=== PATIENT | female | born 1950 | race Caucasian/White ===

== ENCOUNTER 2017-09-13 00:16 | Inpatient (IN) ==
--- NOTE | 2017-09-13 00:29 | Emergency Department Note ---
Addendum entered and electronically signed by Marc Paniagua DO 09/13/17 02:40: Addendum: 02:40 patient was driving abdominal discomfort. CT abdomen and pelvis was obtained and shows a small bowel junction. We will admit the patient for further care. Update Clinical impression to : Epigastric pain, nausea, vomiting, small bowel junction. Disposition: Admitted. Abdomen/Pelvis CT 09/13/17 01:40 IMPRESSION: Small bowel obstruction with no focal transition point identified. D/ / Tenzin Cortés MD / Tenzin Cortés MD Interpreting Provider: Tenzin Cortés MD Original Note: Disposition Clinical Impression: Epigastric pain Nausea and vomiting Qualifiers: Vomiting type: unspecified Vomiting Intractability: non-intractable Qualified Code(s): R11.2 - Nausea with vomiting, unspecified Disposition: Home, Self-Care Condition: Good Time of Disposition: 01:33 Abdominal Pain HPI - General Chief Complaint: ED Abdominal Pain Stated Complaint: abd pain Time Seen by Provider: 09/13/17 00:24 Source: patient Mode of arrival: ambulatory Limitations: no limitations Nursing Notes Reviewed: Yes Vital Signs Reviewed: Yes - History of Present Illness HPI Narrative: Patient is a 67-year-old female with past medical history of colon cancer, diabetes. She presents today due to epigastric pain, vomiting, nausea. She states that this started early yesterday morning. She has had 3 episodes of nonbloody, nonbilious vomiting. Denies any other chest pain shortness of breath , diarrhea, blood in emesis or stool. She feels dehydrated. She has had a cholecystectomy in the past. Denies any history of pancreatitis. Denies any dysuria, hematuria. Pain Scale: 10 - Related Data Home Medications Medication Instructions Recorded Confirmed Allopurinol [Zyloprim] 300 mg PO DAILY 03/14/15 09/03/17 Aspirin 81 mg PO DAILY 03/14/15 09/03/17 Atorvastatin [Lipitor] 40 mg PO DAILY 03/14/15 09/03/17 Lisinopril [Zestril] 20 mg PO DAILY 03/14/15 09/03/17 Metformin [Glucophage] 500 mg PO 0800 03/14/15 09/03/17 Metoprolol XL (24 HR) Succ [Toprol 25 mg PO DAILY 03/14/15 09/03/17 XL] Hydrocodone/Acetaminophen [[place] 1 tab PO TID PRN 10/21/15 09/03/17 5-325 Tablet] Cholecalciferol (Vitamin D3) 2,000 unit PO DAILY 09/03/17 09/03/17 [Vitamin D] Gabapentin [Neurontin] 600 mg PO HS 09/03/17 09/03/17 Omeprazole [PriLOSEC] 20 mg PO DAILY 09/03/17 09/03/17 amLODIPine [Norvasc] 5 mg PO DAILY 09/03/17 09/03/17 Previous Rx's Medication Instructions Recorded Dicyclomine [Bentyl] 20 mg PO QID PRN #40 capsule 09/13/17 Ondansetron ODT [Zofran ODT] 4 mg SL Q6HR PRN #12 tab.rapdis 09/13/17 Allergies Allergy/AdvReac Type Severity Reaction Status Date / Time citalopram [From Celexa] Allergy Rash Verified 09/13/17 00:29 morphine AdvReac Hypotension Verified 09/13/17 00:29 tramadol AdvReac Irritable Verified 09/13/17 00:29 All systems ED: reviewed and negative except as stated. Constitutional: Denies: fever Cardiovascular: Denies: chest pain Respiratory: Denies: cough, dyspnea Gastrointestinal: Reports: abdominal pain, nausea, vomiting. Denies: diarrhea, constipation Genitourinary: Denies: urgency, dysuria Integumentary: Denies: rash Neurological: Denies: headache, weakness, numbness, paresthesias Abdominal Pain PMH - Past Medical History Medical history: Reports: cancer, coronary artery disease, DVT, diabetes, hypertension, other Female Surgical History: Reports: cholecystectomy Psychiatric history: Reports: no psych history - Social History Smoking status: Never smoker Alcohol use: Reports: none Drug use: Reports: none Physical Exam - General Limitations: no limitations General appearance: alert, in no apparent distress - Head Head exam: atraumatic, normocephalic, normal inspection - Eye Eye exam: Present: normal appearance, PERRL, EOMI - ENT ENT exam: normal exam, normal oropharynx, mucous membranes moist - Neck Neck exam: Present: normal inspection, full ROM, trachea midline - Chest Chest inspection: Present: normal inspection, symmetric chest wall rise - Respiratory Respiratory exam: Present: normal lung sounds bilaterally - Cardiovascular Cardiovascular exam: Present: regular rate, normal rhythm, normal heart sounds - Abdominal Exam Abdominal exam: Present: soft, tenderness (Mild epigastric tenderness). Absent : distention, guarding, rebound, rigidity, Hernandez's sign, Rovsing's sign, tenderness at McBurney's Point - Extremities Exam Extremities exam: Present: normal inspection, full ROM. Absent: tenderness, pedal edema - Neurological Exam Neurological exam: Present: alert, oriented X3 - Psychiatric Psychiatric exam: Present: normal affect, normal mood - Skin Skin exam: Present: warm, dry, intact, normal color Course Course Narrative: Patient mildly hypertensive. Otherwise, the rest of the vitals within normal limits. Physical exam positive only for mild epigastric tenderness. Patient received Zofran while in route via EMS and states that this has almost completely resolved her nausea. She also requested some pain medication for epigastric pain. Declined any narcotic medication. I discussed trying Bentyl for her abdominal discomfort she is agreeable with this plan. Basic labs were ordered, no major abnormality and CBC, BMP, LFTs or lipase. Urinalysis negative for UTI. EKG was obtained and showed normal sinus rhythm with no acute ST changes, troponin negative. We will send the patient home with prescription for Zofran and Bentyl to continue to take as needed. This is likely viral gastritis in nature. Vital Signs Temperature 98.4 F 09/13/17 00:24 Pulse Rate 84 09/13/17 00:24 Respiratory Rate 20 09/13/17 00:24 Blood Pressure 153/85 09/13/17 00:24 O2 Sat by Pulse Oximetry 97 09/13/17 00:24 Temperature 98.4 F 09/13/17 00:24 Pulse Rate 86 09/13/17 01:29 Respiratory Rate 16 09/13/17 01:29 Blood Pressure 132/71 09/13/17 01:29 O2 Sat by Pulse Oximetry 95 09/13/17 01:29 Oxygen Delivery Oxygen Delivery Room Air Abdominal Pain - MDM Narrative Medical decision making narrative: Patient mildly hypertensive. Otherwise, the rest of the vitals within normal limits. Physical exam positive only for mild epigastric tenderness. Patient received Zofran while in route via EMS and states that this has almost completely resolved her nausea. She also requested some pain medication for epigastric pain. Declined any narcotic medication. I discussed trying Bentyl for her abdominal discomfort she is agreeable with this plan. Basic labs were ordered, no major abnormality and CBC, BMP, LFTs or lipase. Urinalysis negative for UTI. EKG was obtained and showed normal sinus rhythm with no acute ST changes, troponin negative. We will send the patient home with prescription for Zofran and Bentyl to continue to take as needed. This is likely viral gastritis in nature. - Medical Records Medical records reviewed: Yes I reviewed the patient's medical records. - Lab Data Lab results reviewed: Yes I reviewed the patient's lab results. Result diagrams: 09/13/17 00:30 09/13/17 00:30 Lab Results 09/13/17 09/13/17 09/13/17 Range/Units 00:30 00:30 00:33 WBC 10.1 (4.3-11.1) K/mcL RBC 5.09 H (3.82-4.97) M/mcL Hgb 14.9 (11.5-15.4) g/dL Hct 45.3 H (35.3-44.9) % MCV 89.0 (83.0-100.0) fL MCH 29.3 (28.0-33.3) pg MCHC 32.9 (31.6-35.5) g/dL RDW 16.2 H (11.5-14.5) % Plt Count 228 (140-400) K/mcL MPV 9.4 (9.4-12.4) fL Immature Gran % 0.5 (0-4) % Seg Neutrophils % 85.4 % Lymphocytes % 9.7 % Monocytes % 3.9 % Eosinophils % 0.1 % Basophils % 0.4 % Neutrophils # 8.6 (1.6-8.9) K/mcL Lymphocytes # 1.0 (0.6-4.6) K/mcL Monocytes # 0.4 (0.0-1.3) K/mcL Eosinophils # 0.0 (0.0-0.6) K/mcL Basophils # 0.0 (0.0-0.2) K/mcL Sodium 138 (136-145) mEq/L Potassium 4.4 (3.5-5.1) mEq/L Chloride 104 (98-107) mEq/L Carbon Dioxide 23 (23-29) mEq/L BUN 13 (8-23) mg/dL Creatinine 0.95 (0.60-1.20) mg/dL Est GFR ( Amer) > 60 (> 60) Est GFR (Non-Af Amer) 59 L (> 60) BUN/Creatinine Ratio 14 (6-26) Glucose 177 H (70-105) mg/dL Calculated Osmolality 290 (280-300) Calcium 9.4 (8.6-10.3) mg/dL Total Bilirubin 0.9 (0.3-1.0) mg/dL Direct Bilirubin 0.2 (0.0-0.2) mg/dL Indirect Bilirubin 0.7 (0.0-1.2) mg/dL AST 24 (13-39) Units/L ALT 17 (7-52) Units/L Alkaline Phosphatase 97 (34-104) Units/L Troponin I < 0.03 (< 0.04) ng/mL Serum Total Protein 7.5 (6.4-8.9) g/dL Albumin 4.0 (3.5-5.7) g/dL Globulin 3.5 (2.4-3.5) g/dL Albumin/Globulin Ratio 1.1 (1.1-2.2) Lipase 40 (11-82) Units/L Urine Color (Yellow) Urine Clarity (Clear) Urine pH (5.0-8.0) pH Units Ur Specific [place] (1.010-1.025) Urine Protein (Neg-Trace) mg/dL Urine Glucose (UA) (Normal) mg/dL Urine Ketones (Negative) mg/dL Urine Blood (Negative) Urine Nitrite (Negative) Urine Bilirubin (Negative) Urine Urobilinogen (Normal) mg/dL Ur Leukocyte Esterase (Negative) Urine Microscopic RBC (0-3) per hpf Urine Microscopic WBC (0-3) per hpf Ur Squamous Epith Cells (None-Few) per lpf Urine Bacteria (None-Few) per hpf Urine Mucus (Few) Ur Culture Indicated? (NO) 09/13/17 Range/Units 00:36 WBC (4.3-11.1) K/mcL RBC (3.82-4.97) M/mcL Hgb (11.5-15.4) g/dL Hct (35.3-44.9) % MCV (83.0-100.0) fL MCH (28.0-33.3) pg MCHC (31.6-35.5) g/dL RDW (11.5-14.5) % Plt Count (140-400) K/mcL MPV (9.4-12.4) fL Immature Gran % (0-4) % Seg Neutrophils % % Lymphocytes % % Monocytes % % Eosinophils % % Basophils % % Neutrophils # (1.6-8.9) K/mcL Lymphocytes # (0.6-4.6) K/mcL Monocytes # (0.0-1.3) K/mcL Eosinophils # (0.0-0.6) K/mcL Basophils # (0.0-0.2) K/mcL Sodium (136-145) mEq/L Potassium (3.5-5.1) mEq/L Chloride (98-107) mEq/L Carbon Dioxide (23-29) mEq/L BUN (8-23) mg/dL Creatinine (0.60-1.20) mg/dL Est GFR ( Amer) (> 60) Est GFR (Non-Af Amer) (> 60) BUN/Creatinine Ratio (6-26) Glucose (70-105) mg/dL Calculated Osmolality (280-300) Calcium (8.6-10.3) mg/dL Total Bilirubin (0.3-1.0) mg/dL Direct Bilirubin (0.0-0.2) mg/dL Indirect Bilirubin (0.0-1.2) mg/dL AST (13-39) Units/L ALT (7-52) Units/L Alkaline Phosphatase (34-104) Units/L Troponin I (< 0.04) ng/mL Serum Total Protein (6.4-8.9) g/dL Albumin (3.5-5.7) g/dL Globulin (2.4-3.5) g/dL Albumin/Globulin Ratio (1.1-2.2) Lipase (11-82) Units/L Urine Color Dark Yellow (Yellow) Urine Clarity Cloudy A (Clear) Urine pH 6.0 (5.0-8.0) pH Units Ur Specific [place] > 1.030 H (1.010-1.025) Urine Protein 30 H (Neg-Trace) mg/dL Urine Glucose (UA) Normal (Normal) mg/dL Urine Ketones Trace H (Negative) mg/dL Urine Blood Negative (Negative) Urine Nitrite Negative (Negative) Urine Bilirubin Small H (Negative) Urine Urobilinogen Normal (Normal) mg/dL Ur Leukocyte Esterase Negative (Negative) Urine Microscopic RBC 0-3 (0-3) per hpf Urine Microscopic WBC 3-5 H (0-3) per hpf Ur Squamous Epith Cells Many H (None-Few) per lpf Urine Bacteria None Seen (None-Few) per hpf Urine Mucus Few (Few) Ur Culture Indicated? NO (NO) - EKG Data EKG attestation: Yes I reviewed and interpreted this EKG. EKG results narrative: 09/13/2017 at 00:30. Normal sinus rhythm. Rate 82. [place] 190. QRS 15. QTC 430. Left axis deviation. No acute ST elevation or depression. Attestation Statement - Attestation Attestation: DR [place] note: Pt seen in conjunction w/ resident Dr Paniagua; Please see his chart for complete documentation; I spent face to face time w/ the patient and agree w/ the pt's treatment and disposition; pt w/ mild /diffuse abd pain x 24 hrs w/ intermittent n/v; non surgical abdomen w/o guarding; Ct Scan results reviewed; pt discussed w/and accepted by Dr. Baeza, hospitalist @ 3 a.m; surgical consullt placed in computer @ request of hostpitalist; no emergent need for surgery to see this pt in the er;
[2017-09-13 00:43] LABS: Basophils % 0.4 %; Eosinophils % 0.1 %; Hematocrit 45.3 % (35.3-44.9); Hemoglobin 14.9 g/dL (11.5-15.4); Immature Granulocytes % 0.5 % (0-4); Lymphocytes % 9.7 %; Mean Corpuscular HGB Conc 32.9 g/dL (31.6-35.5); Mean Corpuscular Hemoglobin 29.3 pg (28.0-33.3); Mean Platelet Volume 9.4 fL (9.4-12.4); Monocytes # 0.4 K/mcL (0.0-1.3); Monocytes % 3.9 %; Neutrophils # 8.6 K/mcL (1.6-8.9); Platelet Count 228 K/mcL (140-400); Red Blood Count 5.09 M/mcL (3.82-4.97); Red Cell Distribution Width 16.2 % (11.5-14.5); Segmented Neutrophils % 85.4 %
[2017-09-13 00:49] LABS: Bilirubin,Urine Small (Negative); Blood,Urine Negative (Negative); Clarity,Urine Cloudy (Clear); Color,Urine Dark Yellow (Yellow); Glucose,Urine (UA) Normal (Normal); Ketones,Urine Trace mg/dL (Negative); Leukocyte Esterase,Urine Negative (Negative); Nitrite,Urine Negative (Negative); Protein,Urine 30 mg/dL (Neg-Trace); Specific Gravity,Urine > 1.030 (1.010-1.025); Urobilinogen,Urine Normal (Normal)
[2017-09-13 00:52] LABS: Bacteria,Urine None Seen per hpf (None-Few); RBC,Urine 0-3 per hpf (0-3); Squamous Epithelial Cell,Urine Many per lpf (None-Few)
[2017-09-13 01:04] LABS: Alanine Aminotransferase 17 Units/L (7-52); Albumin/Globulin Ratio 1.1 (1.1-2.2); Alkaline Phosphatase 97 Units/L (34-104); Aspartate Amino Transferase 24 Units/L (13-39); BUN/Creatinine Ratio 14 (6-26); Bilirubin,Direct 0.2 mg/dL (0.0-0.2); Bilirubin,Indirect 0.7 mg/dL (0.0-1.2); Bilirubin,Total 0.9 mg/dL (0.3-1.0); Blood Urea Nitrogen 13 mg/dL (8-23); Calcium 9.4 mg/dL (8.6-10.3); Carbon Dioxide 23 mEq/L (23-29); Chloride 104 mEq/L (98-107); Globulin 3.5 g/dL (2.4-3.5); Glucose 177 mg/dL (70-105); Lipase 40 Units/L (11-82); Osmolality,Calculated 290 (280-300); Potassium 4.4 mEq/L (3.5-5.1); Sodium 138 mEq/L (136-145); Total Protein 7.5 g/dL (6.4-8.9); eGFR For African Americans > 60 (> 60); eGFR For Non-African Americans 59 (> 60)
[2017-09-13 01:04] LABS: Mucus,Urine Few (Few)
[2017-09-13] MEDS ORDERED: 0.9 % Sodium Chloride 1,000 ML IVC ONE (01:27)
[2017-09-13] MEDS ORDERED: Naloxone 0.4 MG/ML INJ IVP PRN (03:00)
[2017-09-13] MEDS ORDERED: *HR* Dextrose 50 % in Water (Syg) 50 ML SYRINGE IVP PRN (03:01)
[2017-09-13] MEDS ORDERED: *HR* Metoprolol 5 MG/5 ML VIAL IVP PRN (03:01)
[2017-09-13] MEDS ORDERED: D5% in Water 1,000 ML IVC PRN (03:01)
[2017-09-13] MEDS ORDERED: Dextrose Gel 15 GM/37.5 ML TUBE PO PRN ×2 (03:01)
--- NOTE | 2017-09-13 03:04 | Internal Med History&Physical ---
Date of Encounter: 09/13/17 Time of Encounter: 03:55 Internal Medicine - H&P: HPI Chief complaint: Abdominal pain Admitted From: Home Plans for Post Hospital Care: Home History of present illness: Ms. Grant is a 67 year old female with PMH of colon CA, DM, HTN, CAD, multiple abdominal surgeries including hemicolectomy, hernia repairs. She reports a history of sharp , colicky generalized abdominal pain, which woke her up this morning, associated with the nausea and vomiting, several episodes NBNB for most of the day prior to presentation. Her last BM was 2 days prior to presentation. She denies diarrhea or constipation, she denies any , neurological, cardiac or chest symptoms. Work up in the ER : EKG is unremarkable, CBC, Chem, LFT, Lipase WNL, UA is negative for UTI Abd/Pelvis CT showed SBO Patient will be admitted to observation for management of SBO Past Med Surg Social Fam HX - Past Medical History Medical history: cancer, coronary artery disease, DVT, diabetes, hypertension, other Psychiatric history: no psych history - Past Surgical History Surgical History: other - Social History Smoking Status: Never smoker Smokeless Tobacco Status: Yes Alcohol use: none Drug use: none - Family History Mother Adopted: No Family Member Ethnicity: Non- Living Status: Hx Family Cardiac Disorders: No Hx Family Respiratory Disorders: No Hx Family Cancer: Yes Hx Family GI Disorders: Yes Hx Family Endocrine Disorder: No Hx Family Neuromuscular Disorders: No Hx Family Neurologic Disorders: No Hx Family HEENT Disorders: No Hx Family Autoimmune Disorders: No Internal Medicine - H&P: Meds Allopurinol [Zyloprim] 300 mg PO DAILY 03/14/15 [History] Aspirin 81 mg PO DAILY 03/14/15 [History] Atorvastatin [Lipitor] 40 mg PO DAILY 03/14/15 [History] Lisinopril [Zestril] 20 mg PO DAILY 03/14/15 [History] Metformin [Glucophage] 500 mg PO 0800 03/14/15 [History] Metoprolol XL (24 HR) Succ [Toprol XL] 25 mg PO DAILY 03/14/15 [History] Hydrocodone/Acetaminophen [[place] 5-325 Tablet] 1 tab PO TID PRN 10/21/15 [ History] Cholecalciferol (Vitamin D3) [Vitamin D] 2,000 unit PO DAILY 09/03/17 [History] Gabapentin [Neurontin] 600 mg PO HS 09/03/17 [History] Omeprazole [PriLOSEC] 20 mg PO DAILY 09/03/17 [History] amLODIPine [Norvasc] 5 mg PO DAILY 09/03/17 [History] Dicyclomine [Bentyl] 20 mg PO QID PRN #40 capsule 09/13/17 [Rx] Ondansetron ODT [Zofran ODT] 4 mg SL Q6HR PRN #12 tab.rapdis 09/13/17 [Rx] 3 Allergy/AdvReac Type Severity Reaction Status Date / Time citalopram [From Celexa] Allergy Rash Verified 09/13/17 00:29 morphine AdvReac Hypotension Verified 09/13/17 00:29 tramadol AdvReac Irritable Verified 09/13/17 00:29 All Systems PM: A 10-system review of systems was performed and is negative for pertinent findings except as documented above in the HPI. - Constitutional Constitutional: as per HPI - EENT Eyes: no change in vision, no discharge, no pain, no photophobia Ears: no ear discharge, no ear pain, no tinnitus Nose, mouth and throat: no dysphagia, no nasal discharge, no neck pain, no sore throat - Breasts Breasts: as per HPI - Cardiovascular Cardiovascular ROS IM: no chest pain, no diaphoresis, no dyspnea, no lightheadedness, no palpitations, no syncope - Respiratory Respiratory: no cough, no dyspnea, no wheezing, no excessive phlegm production - Gastrointestinal Gastrointestinal: as per HPI - Genitourinary Genitourinary: no change in urinary stream, no dysuria, no flank pain, no hematuria - Musculoskeletal Musculoskeletal ROS IM: no numbness, no tingling - Integumentary Integumentary IM: no rash, no unusual bruising - Neurological Neurological ROS: no confusion, no convulsions, no focal weakness, no numbness, no tingling, no tremor(s) - Hematologic/Lymphatic Hematologic/Lymphatic: no easy bruising - Constitutional Vitals: Temp Pulse Resp BP Pulse Ox 98.4 F 86 16 132/71 95 09/13/17 00:24 09/13/17 01:29 09/13/17 01:29 09/13/17 01:29 09/13/17 01:29 General appearance: Present: mild distress, A&O X 3, morbidly obese, pleasant - Head Head exam: Present: atraumatic, normocephalic - Eye Eye exam: Present: PERRL, conjuntiva pink, sclera anicteric Pupils: Present: PERRL - Neck Neck exam general surgery: Present: supple, trachea midline. Absent: lymphadenopathy - Respiratory Respiratory exam: Present: CTAB. Absent: accessory muscle use, rales, rhonchi, wheezes - Cardiovascular Cardiovascular exam: Present: RRR, +S1, +S2. Absent: diastolic murmur, gallop, rubs, systolic murmur - GI/Abdominal Additional comments: scars++ absent bowel sounds no palpably enlarged organs abdomen is soft, vaguely tender - Extremities Exam Extremities exam: Present: warm, radial pulses palpable and symmetrical. Absent : calf tenderness, cyanotic, pedal edema - Neurological Exam Neurological exam: Present: alert, CN II-XII intact, oriented X3, no focal deficits. Absent: pronater drift, facial droop, speech deficit - Skin Skin exam: Present: dry, intact Internal Med - H&P Results - Labs CBC & Chem 7: 09/13/17 00:30 09/13/17 00:30 Labs: Short CBC 09/13/17 Range/Units 00:30 WBC 10.1 (4.3-11.1) K/mcL Hgb 14.9 (11.5-15.4) g/dL Hct 45.3 H (35.3-44.9) % Plt Count 228 (140-400) K/mcL Neutrophils # 8.6 (1.6-8.9) K/mcL BMP 09/13/17 00:30 Sodium 138 Potassium 4.4 Chloride 104 Carbon Dioxide 23 BUN 13 Creatinine 0.95 Glucose 177 H Calcium 9.4 Cardiac Enzymes 09/13/17 Range/Units 00:33 Troponin I < 0.03 (< 0.04) ng/mL Liver Function 09/13/17 Range/Units 00:30 Total Bilirubin 0.9 (0.3-1.0) mg/dL Direct Bilirubin 0.2 (0.0-0.2) mg/dL AST 24 (13-39) Units/L ALT 17 (7-52) Units/L Alkaline Phosphatase 97 (34-104) Units/L Albumin 4.0 (3.5-5.7) g/dL Urine 09/13/17 Range/Units 00:36 Urine Color Dark Yellow (Yellow) Urine Clarity Cloudy A (Clear) Urine pH 6.0 (5.0-8.0) pH Units Ur Specific [place] > 1.030 H (1.010-1.025) Urine Protein 30 H (Neg-Trace) mg/dL Urine Glucose (UA) Normal (Normal) mg/dL - Impressions ITS Impressions Abdomen/Pelvis CT 09/13/17 01:40 IMPRESSION: Small bowel obstruction with no focal transition point identified. D/ / Tenzin Cortés MD / Tenzin Cortés MD Interpreting Provider: Tenzin Cortés MD - Assessment and plan (1) SBO (small bowel obstruction) Current Visit: Yes Status: Acute Assessment and plan: Bowel rest NPO IVF hydration Surgery was consulted according to ED Pain control Close monitoring (2) CAD (coronary artery disease) Current Visit: Yes Status: Chronic Assessment and plan: NPO for now, hold meds Qualifiers: Coronary Disease-Associated Artery/Lesion type: [place] artery [place] vs. transplanted heart: [place] heart Associated angina: without angina Qualified Code(s): I25.10 - Atherosclerotic heart disease of [place] coronary artery without angina pectoris (3) HTN (hypertension) Current Visit: Yes Status: Chronic Assessment and plan: IV metoprolol prn SBP >150 Qualifiers: Hypertension type: essential hypertension Qualified Code(s): I10 - Essential (primary) hypertension (4) Diabetes mellitus Current Visit: Yes Status: Chronic Assessment and plan: FS q6h while NPO, sliding scale insulin Qualifiers: Diabetes mellitus type: type 2 Diabetes mellitus termite control service representative insulin use: without detention use Diabetes mellitus complication status: without complication Qualified Code(s): E11.9 - Type 2 diabetes mellitus without complications (5) Colon cancer Current Visit: Yes Status: Chronic Assessment and plan: s/p hemicolectomy follow up with onc as out-patient Qualifiers: Colon location: unspecified part of colon Qualified Code(s): C18.9 - Malignant neoplasm of colon, unspecified - Time Spent With Patient Total time spent is greater than 50% in coordination of care (as documented) at patient's floor/unit and/or counseling patient:
[2017-09-13] MEDS ORDERED: *HR* FentaNYL (PF) 100 MCG/2 ML VIAL IVP ONE (03:05)
[2017-09-13] MEDS ORDERED: Ondansetron 4 MG/2 ML VIAL IVP PRN (03:27)
[2017-09-13] MEDS: 0.9 % Sodium Chloride 1,000 ML IVC SCH ×2 (04:25→09:11)
[2017-09-13] MEDS: Insulin LISPRO 300 UNITS/3 ML VIAL SQ SCH ×4 (06:30→23:57)
[2017-09-13] MEDS: *HR* FentaNYL (PF) 100 MCG/2 ML VIAL IVP PRN ×3 (06:33→21:52)
[2017-09-13 06:55] LABS: Basophils % 0.4 %; Eosinophils % 0.2 %; Hematocrit 40.2 % (35.3-44.9); Immature Granulocytes % 0.6 % (0-4); Lymphocytes # 1.7 K/mcL (0.6-4.6); Mean Corpuscular HGB Conc 31.6 g/dL (31.6-35.5); Mean Corpuscular Hemoglobin 28.5 pg (28.0-33.3); Mean Corpuscular Volume 90.1 fL (83.0-100.0); Mean Platelet Volume 9.9 fL (9.4-12.4); Monocytes # 0.6 K/mcL (0.0-1.3); Monocytes % 6.2 %; Neutrophils # 7.7 K/mcL (1.6-8.9); Platelet Count 228 K/mcL (140-400); Red Blood Count 4.46 M/mcL (3.82-4.97); Red Cell Distribution Width 16.2 % (11.5-14.5); Segmented Neutrophils % 75.6 %
[2017-09-13 06:56] LABS: Hemoglobin 12.7 g/dL (11.5-15.4)
[2017-09-13 07:14] LABS: BUN/Creatinine Ratio 16 (6-26); Blood Urea Nitrogen 15 mg/dL (8-23); Calcium 8.7 mg/dL (8.6-10.3); Carbon Dioxide 25 mEq/L (23-29); Chloride 107 mEq/L (98-107); Glucose 138 mg/dL (70-105); Magnesium 1.8 mg/dL (1.6-2.6); Osmolality,Calculated 295 (280-300); Phosphorous 3.9 mg/dL (2.7-4.5); Sodium 141 mEq/L (136-145); eGFR For African Americans > 60 (> 60); eGFR For Non-African Americans > 60 (> 60)
--- NOTE | 2017-09-13 09:23 | Internal Med Progress Note ---
Date of Encounter: 09/13/17 Time of Encounter: 08:30 - Assessment and plan (1) SBO (small bowel obstruction) Current Visit: Yes Status: Acute Assessment and plan: Spoke with Dr. Wilde from the surgery team who will see the patient in consultation. As always thank you Dr. Wilde Continue bowel rest, remain nothing by mouth Continue antiemetics for nausea and vomiting; denying any nausea at this time; should nausea vomiting resume, consider NG tube placement Continue IV hydration while patient is nothing by mouth Her abdomen does not appear acute however, she is still not passing gas and has not had a bowel movement. Continue to monitor closely (2) Colon cancer Current Visit: Yes Status: Chronic Assessment and plan: S/P hemicolectomy Follows with oncology as an outpatient Qualifiers: Colon location: unspecified part of colon Qualified Code(s): C18.9 - Malignant neoplasm of colon, unspecified (3) CAD (coronary artery disease) Current Visit: Yes Status: Chronic Assessment and plan: Nothing by mouth for now, continue to hold medications. Denying any current chest pain. Qualifiers: Coronary Disease-Associated Artery/Lesion type: [place] artery [place] vs. transplanted heart: [place] heart Associated angina: without angina Qualified Code(s): I25.10 - Atherosclerotic heart disease of [place] coronary artery without angina pectoris (4) HTN (hypertension) Current Visit: Yes Status: Chronic Assessment and plan: Blood pressure currently stable, oral medications on hold; IV metoprolol prn SBP >150 Qualifiers: Hypertension type: essential hypertension Qualified Code(s): I10 - Essential (primary) hypertension (5) Diabetes mellitus Current Visit: Yes Status: Chronic Assessment and plan: Every 6 hours Accu-Cheks Low sliding scale corrective coverage Qualifiers: Diabetes mellitus type: type 2 Diabetes mellitus design specialist insulin use: without alf use Diabetes mellitus complication status: without complication Qualified Code(s): E11.9 - Type 2 diabetes mellitus without complications - Time Spent With Patient Total time spent is greater than 50% in coordination of care (as documented) at patient's floor/unit and/or counseling patient: Greater than 35 minutes - Subjective Interval history: Ms Grant, this 67-year-old female who initially presented with colicky generalized abdominal pain, nausea and vomiting. She reports that she has not had a bowel movement for [address] of abdomen and pelvis revealed a small bowel obstruction. She is continuing to endorse generalized abdominal pain, left upper quadrant and left lower quadrant greater than right side of the abdomen. She reports that she is still not passing gas and still has not had a bowel movement. Her, her nausea and vomiting since subsided with bowel rest and anti-emetic use - Constitutional Vitals: Temp Pulse Resp BP Pulse Ox 98.6 F 71 16 97/58 97 09/13/17 07:21 09/13/17 07:21 09/13/17 07:21 09/13/17 07:21 09/13/17 07:21 General appearance: Present: cooperative, A&O X 3, morbidly obese, pleasant - Respiratory Respiratory exam: Present: CTAB. Absent: accessory muscle use, rales, rhonchi, wheezes - Cardiovascular Cardiovascular exam: Present: RRR, +S1, +S2. Absent: diastolic murmur, gallop, rubs, systolic murmur - GI/Abdominal GI/Abdominal exam: Present: soft, tenderness (diffuse abdominal tenderness, worse in LUQ, LLQ), no peritoneal signs. Absent: distended Additional comments: Tinkling of gas in the epigastrium, hypoactive bowel sounds throughout Internal Medicine: Result - Labs CBC & Chem 7: 09/13/17 06:27 09/13/17 06:27 Labs: Short CBC 09/13/17 Range/Units 06:27 WBC 10.1 (4.3-11.1) K/mcL Hgb 12.7 D (11.5-15.4) g/dL Hct 40.2 (35.3-44.9) % Plt Count 228 (140-400) K/mcL Neutrophils # 7.7 (1.6-8.9) K/mcL BMP 09/13/17 06:27 Sodium 141 Potassium 4.0 Chloride 107 Carbon Dioxide 25 BUN 15 Creatinine 0.91 Glucose 138 H Calcium 8.7 - Impressions Impressions Abdomen/Pelvis CT 09/13/17 01:40 IMPRESSION: Small bowel obstruction with no focal transition point identified. D/ / Tenzin Cortés MD / Tenzin Cortés MD Interpreting Provider: Tenzin Cortés MD Consult Discharge Plan - Plan Referrals: Marshal Morrell MD [Primary Care Provider] -
--- NOTE | 2017-09-13 09:28 | General Surgery Consult Note ---
<ReubencortneyjaironkaileyKenneth - Last Filed: 09/13/17 12:10> Date of Encounter: 09/13/17 Time of Encounter: 08:30 Assessment and Plan (1) SBO (small bowel obstruction) Current Visit: Yes Status: Acute Pt with SBO on CT abd exam shows no peritoneal signs or evidence of accute abdomen. No bowel sounds in lower quadrants, no bowel movements or passing gas. Plan: Keep NPO Continue Bowel Rest. Continue Zofran PRN for Nausea No need for NG tube at this time as pt is not currently nauseated or vomiting Continue IV hydration while NPO Continue to monitor. (2) Colon cancer Current Visit: Yes Status: Chronic Pt is s/p R colectomy Pt follows with surgery as an out patient. Patient had recent colonoscopy 09/03 one polyp removed and inflammation in transverse colon biopsied, path pending. Qualifiers: Colon location: unspecified part of colon Qualified Code(s): C18.9 - Malignant neoplasm of colon, unspecified (3) CAD (coronary artery disease) Current Visit: Yes Status: Chronic Management per primary team Qualifiers: Coronary Disease-Associated Artery/Lesion type: [place] artery [place] vs. transplanted heart: [place] heart Associated angina: without angina Qualified Code(s): I25.10 - Atherosclerotic heart disease of [place] coronary artery without angina pectoris (4) HTN (hypertension) Current Visit: Yes Status: Chronic Management per primary team. Qualifiers: Hypertension type: essential hypertension Qualified Code(s): I10 - Essential (primary) hypertension (5) Diabetes mellitus Current Visit: Yes Status: Chronic Management per primary team. Qualifiers: Diabetes mellitus type: type 2 Diabetes mellitus petroleum terminal plant operator insulin use: without petroleum terminal plant operator use Diabetes mellitus complication status: without complication Qualified Code(s): E11.9 - Type 2 diabetes mellitus without complications History of Present Illness Consult date: 09/13/17 Reason for consult: other (SBO) Requesting physician: Michael Lord History of present illness: 67 yo F c PMHx of Colon CA s/p R hemicolectomy in 2013 at [facility], HTN, Anemaia, CAD, CKD, DM, Lap choly c ventral hernia repair.P siddharth Recent colonoscopy with Dr. Maurice that showed non thrombosed external hemorrhoids, one 3mm polyp which was removed, localized mild inflammation in the transverse colon which was biopsied. Pathology pending. Patient reports No bowel movement of gas since Saturday. She had 3 episodes of non bloddy non bilious vomiting yesterday. No blood in vomit or stool. Pt dneis Diarrhea, Chest Pain, SOB, Fever , dysuria. Pt denies hx of prior obstruction. Patient had CT scan of abd which showed: "The stomach is distended. Small bowel is mildly dilated and fluid-filled. No focal transition point is identified. The patient is status post right hemicolectomy. There are descending and sigmoid colon diverticula with no definite evidence for diverticulitis." Basic lab work including CBC, BMP, LFTs, lipase, troponin, and UA were unremarkable. Vitals were stable. Past Med Surg Social Fam HX - Past Medical History Medical history: cancer, coronary artery disease, DVT, diabetes, hypertension, other Psychiatric history: no psych history - Past Surgical History Surgical History: other - Social History Smoking Status: Never smoker Smokeless Tobacco Status: Yes Alcohol use: none Drug use: none - Family History Mother Adopted: [place]: Eva Age: 85 Family Member Ethnicity: Non- Living Status: Age at : 85 Cause of : colon cancer Hx Family Cardiac Disorders: No Hx Family Respiratory Disorders: No Hx Family Cancer: Yes Hx Family GI Disorders: No Hx Family Genitourinary Disorders: No Hx Family Endocrine Disorder: No Hx Family Musculoskeletal Disorders: No Hx Family Neuromuscular Disorders: No Hx Family Neurologic Disorders: No Hx Family HEENT Disorders: No Hx Family Autoimmune Disorders: No Hx Family Reproductive Disorders: No Hx Family Psychosocial Disorders: No Hx Family Medical Disorders: No Medications and Allergies Allopurinol [Zyloprim] 300 mg PO DAILY 03/14/15 [History] Aspirin 81 mg PO DAILY 03/14/15 [History] Atorvastatin [Lipitor] 40 mg PO DAILY 03/14/15 [History] Lisinopril [Zestril] 20 mg PO DAILY 03/14/15 [History] Metformin [Glucophage] 500 mg PO 0800 03/14/15 [History] Hydrocodone/Acetaminophen [[place] 5-325 Tablet] 1 tab PO TID PRN 10/21/15 [ History] Cholecalciferol (Vitamin D3) [Vitamin D] 2,000 unit PO DAILY 09/03/17 [History] Gabapentin [Neurontin] 600 mg PO HS 09/03/17 [History] Omeprazole [PriLOSEC] 20 mg PO DAILY 09/03/17 [History] amLODIPine [Norvasc] 5 mg PO DAILY 09/03/17 [History] Metoprolol XL (24 HR) Succ [Toprol XL] 100 mg PO DAILY 09/13/17 [History] Ondansetron HCl [Zofran] 4 mg PO DAILY 09/13/17 [History] 3 Allergy/AdvReac Type Severity Reaction Status Date / Time citalopram [From Celexa] Allergy Rash Verified 09/13/17 09:08 morphine AdvReac Hypotension Verified 09/13/17 09:08 tramadol AdvReac Irritable Verified 09/13/17 09:08 Review of Systems All systems PM: The remainder of the systems were reviewed and are negative General Surgery Exam Initial Vital Signs Temp Pulse Resp BP Pulse Ox 98.4 F 84 20 153/85 97 09/13/17 00:24 09/13/17 00:24 09/13/17 00:24 09/13/17 00:24 09/13/17 00:24 - General physical appearance well developed, well nourished, no distress - Eyes normal ocular movement - ENT no hearing loss - Neck trachea midline - Respiratory normal expansion, normal respiratory effort, clear to auscultation - Cardiovascular Cardiovascular exam: Present: RRR, no murmurs/rubs/gallops - Abdomen Abdomen general surgery: Present: bowel sounds present (in Upper quadrents absent in lower quadrents ), soft, tender (mildly tender diffusely ), surgical scars Abdominal Tenderness: Present: diffusely - Integumentary Integumentary general surgery: Present: warm and dry - Neurologic Present: CN 2-12 grossly intact - Psychiatric Psychiatric general surgery: Present: A&Ox3, speech is normal Exam Initial Vital Signs Temp Pulse Resp BP Pulse Ox 98.4 F 84 20 153/85 97 09/13/17 00:24 09/13/17 00:24 09/13/17 00:24 09/13/17 00:24 09/13/17 00:24 Results - Labs 09/13/17 06:27 09/13/17 06:27 Abnormal lab results RDW 16.2 % (11.5-14.5) H 09/13/17 06:27 Glucose 138 mg/dL (70-105) H 09/13/17 06:27 POC Glucose 124 mg/dL (70-99) H 09/13/17 06:29 Urine Clarity Cloudy (Clear) A 09/13/17 00:36 Ur Specific [place] > 1.030 (1.010-1.025) H 09/13/17 00:36 Urine Protein 30 mg/dL (Neg-Trace) H 09/13/17 00:36 Urine Ketones Trace mg/dL (Negative) H 09/13/17 00:36 Urine Bilirubin Small (Negative) H 09/13/17 00:36 Urine Microscopic WBC 3-5 per hpf (0-3) H 09/13/17 00:36 Ur Squamous Epith Cells Many per lpf (None-Few) H 09/13/17 00:36 Diabetes panel 09/13/17 Range/Units 06:27 Sodium 141 (136-145) mEq/L Potassium 4.0 (3.5-5.1) mEq/L Chloride 107 (98-107) mEq/L Carbon Dioxide 25 (23-29) mEq/L BUN 15 (8-23) mg/dL Creatinine 0.91 (0.60-1.20) mg/dL Glucose 138 H (70-105) mg/dL Calcium 8.7 (8.6-10.3) mg/dL Calcium panel 09/13/17 Range/Units 06:27 Calcium 8.7 (8.6-10.3) mg/dL Phosphorus 3.9 (2.7-4.5) mg/dL Pituitary panel 09/13/17 Range/Units 06:27 Sodium 141 (136-145) mEq/L Potassium 4.0 (3.5-5.1) mEq/L Chloride 107 (98-107) mEq/L Carbon Dioxide 25 (23-29) mEq/L BUN 15 (8-23) mg/dL Creatinine 0.91 (0.60-1.20) mg/dL Glucose 138 H (70-105) mg/dL Calcium 8.7 (8.6-10.3) mg/dL Adrenal panel 09/13/17 Range/Units 06:27 Sodium 141 (136-145) mEq/L Potassium 4.0 (3.5-5.1) mEq/L Chloride 107 (98-107) mEq/L Carbon Dioxide 25 (23-29) mEq/L BUN 15 (8-23) mg/dL Creatinine 0.91 (0.60-1.20) mg/dL Glucose 138 H (70-105) mg/dL Calcium 8.7 (8.6-10.3) mg/dL All other labs normal. Consult Discharge Plan - Plan Referrals: Marshal Morrell MD [Primary Care Provider] - <Rajesh Wilde - Last Filed: 09/13/17 18:41> Date of Encounter: 09/13/17 Review of Systems All systems PM: The remainder of the systems were reviewed and are negative General Surgery Exam Initial Vital Signs Temp Pulse Resp BP Pulse Ox 98.4 F 84 20 153/85 97 09/13/17 00:24 09/13/17 00:24 09/13/17 00:24 09/13/17 00:24 09/13/17 00:24 Exam Initial Vital Signs Temp Pulse Resp BP Pulse Ox 98.4 F 84 20 153/85 97 09/13/17 00:24 09/13/17 00:24 09/13/17 00:24 09/13/17 00:24 09/13/17 00:24 Results - Labs 09/13/17 06:27 09/13/17 06:27 Abnormal lab results RDW 16.2 % (11.5-14.5) H 09/13/17 06:27 Glucose 138 mg/dL (70-105) H 09/13/17 06:27 POC Glucose 124 mg/dL (70-99) H 09/13/17 06:29 Urine Clarity Cloudy (Clear) A 09/13/17 00:36 Ur Specific [place] > 1.030 (1.010-1.025) H 09/13/17 00:36 Urine Protein 30 mg/dL (Neg-Trace) H 09/13/17 00:36 Urine Ketones Trace mg/dL (Negative) H 09/13/17 00:36 Urine Bilirubin Small (Negative) H 09/13/17 00:36 Urine Microscopic WBC 3-5 per hpf (0-3) H 09/13/17 00:36 Ur Squamous Epith Cells Many per lpf (None-Few) H 09/13/17 00:36 Diabetes panel 09/13/17 Range/Units 06:27 Sodium 141 (136-145) mEq/L Potassium 4.0 (3.5-5.1) mEq/L Chloride 107 (98-107) mEq/L Carbon Dioxide 25 (23-29) mEq/L BUN 15 (8-23) mg/dL Creatinine 0.91 (0.60-1.20) mg/dL Glucose 138 H (70-105) mg/dL Calcium 8.7 (8.6-10.3) mg/dL Calcium panel 09/13/17 Range/Units 06:27 Calcium 8.7 (8.6-10.3) mg/dL Phosphorus 3.9 (2.7-4.5) mg/dL Pituitary panel 09/13/17 Range/Units 06:27 Sodium 141 (136-145) mEq/L Potassium 4.0 (3.5-5.1) mEq/L Chloride 107 (98-107) mEq/L Carbon Dioxide 25 (23-29) mEq/L BUN 15 (8-23) mg/dL Creatinine 0.91 (0.60-1.20) mg/dL Glucose 138 H (70-105) mg/dL Calcium 8.7 (8.6-10.3) mg/dL Adrenal panel 09/13/17 Range/Units 06:27 Sodium 141 (136-145) mEq/L Potassium 4.0 (3.5-5.1) mEq/L Chloride 107 (98-107) mEq/L Carbon Dioxide 25 (23-29) mEq/L BUN 15 (8-23) mg/dL Creatinine 0.91 (0.60-1.20) mg/dL Glucose 138 H (70-105) mg/dL Calcium 8.7 (8.6-10.3) mg/dL All other labs normal. - Attending Attestation I have personally seen and examined the patient. I have reviewed pertinent labs , imaging, progress notes, including this one. I agree with the above assessment and plan and wish to include the following... 67F s/p R hemicolectomy with concern for sbo; non peritoneal, non vomiting at present limit narcotics replete lyes keep NPO ARBF ambulate/activity as tolerated will cont to follow
--- NOTE | 2017-09-13 15:24 | Electrocardiograph Report ---
[place] [id number] Test Date: 2017-09-13 Pat Name: Marian Grant Department: 103 Room: [facility] Gender: F [place] Attendant: KARIME : 1950 Requested By: Marc Paniagua Order Number: [id number] Reading MD: Citlalli Diallo Measurements Intervals [place] Rate: 82 P: 18 MA: 190 QRS: -21 QRSD: 105 T: 50 QT: 375 QTc: 413 Interpretive Statements SINUS RHYTHM BORDERLINE LEFT AXIS DEVIATION [QRS AXIS < -20] Electronically Signed On 09-13-2017 15:23:10 EDT by Citlalli Diallo
[2017-09-13] MEDS: Acetaminophen IV 1,000 MG/100 ML INFUS..BTL IVPB PRN (22:44)
[2017-09-14 03:46] LABS: Basophils % 0.7 %; Eosinophils # 0.2 K/mcL (0.0-0.6); Eosinophils % 2.6 %; Hematocrit 37.7 % (35.3-44.9); Immature Granulocytes % 0.4 % (0-4); Lymphocytes % 34.3 %; Mean Corpuscular HGB Conc 31.8 g/dL (31.6-35.5); Mean Corpuscular Hemoglobin 29.2 pg (28.0-33.3); Mean Corpuscular Volume 91.7 fL (83.0-100.0); Mean Platelet Volume 9.7 fL (9.4-12.4); Monocytes # 0.4 K/mcL (0.0-1.3); Monocytes % 7.5 %; Neutrophils # 3.1 K/mcL (1.6-8.9); Platelet Count 163 K/mcL (140-400); Red Blood Count 4.11 M/mcL (3.82-4.97); Red Cell Distribution Width 16.5 % (11.5-14.5); Segmented Neutrophils % 54.5 %
[2017-09-14 03:59] LABS: BUN/Creatinine Ratio 18 (6-26); Blood Urea Nitrogen 16 mg/dL (8-23); Calcium 8.5 mg/dL (8.6-10.3); Carbon Dioxide 24 mEq/L (23-29); Chloride 112 mEq/L (98-107); Glucose 104 mg/dL (70-105); Osmolality,Calculated 291 (280-300); Potassium 3.8 mEq/L (3.5-5.1); Sodium 140 mEq/L (136-145); eGFR For African Americans > 60 (> 60); eGFR For Non-African Americans > 60 (> 60)
[2017-09-14] MEDS: Insulin LISPRO 300 UNITS/3 ML VIAL SQ SCH ×4 (06:07→23:39)
[2017-09-14] MEDS: *HR* FentaNYL (PF) 100 MCG/2 ML VIAL IVP PRN (06:10)
--- NOTE | 2017-09-14 08:36 | Internal Med Progress Note ---
<Linwood Wooten - Last Filed: 09/14/17 14:44> Date of Encounter: 09/14/17 - Assessment and plan (1) Colon cancer Current Visit: Yes Status: Chronic Qualifiers: Colon location: unspecified part of colon Qualified Code(s): C18.9 - Malignant neoplasm of colon, unspecified (2) SBO (small bowel obstruction) Current Visit: Yes Status: Acute (3) CAD (coronary artery disease) Current Visit: Yes Status: Chronic Qualifiers: Coronary Disease-Associated Artery/Lesion type: [place] artery [place] vs. 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 Diabetes mellitus complication status: without complication Qualified Code(s): E11.9 - Type 2 diabetes mellitus without complications - Time Spent With Patient Total time spent is greater than 50% in coordination of care (as documented) at patient's floor/unit and/or counseling patient: - Constitutional Vitals: Temp Pulse Resp BP Pulse Ox 98.1 F 65 16 125/76 94 09/14/17 10:54 09/14/17 10:54 09/14/17 10:54 09/14/17 10:54 09/14/17 10:54 Internal Medicine: Result - Labs CBC & Chem 7: 09/14/17 03:12 09/14/17 03:12 Labs: Short CBC 09/14/17 Range/Units 03:12 WBC 5.7 (4.3-11.1) K/mcL Hgb 12.0 (11.5-15.4) g/dL Hct 37.7 (35.3-44.9) % Plt Count 163 (140-400) K/mcL Neutrophils # 3.1 (1.6-8.9) K/mcL BMP 09/14/17 03:12 Sodium 140 Potassium 3.8 Chloride 112 H Carbon Dioxide 24 BUN 16 Creatinine 0.91 Glucose 104 Calcium 8.5 L Consult Discharge Plan - Plan Referrals: Marshal Morrell MD [Primary Care Provider] - - Attending Attestation I performed an independent interview and examine this patient. I agree with the findings, assessment, and plan of Dr. Rob, internal medicine resident. His note reflects my input and our discussion. This is a 67-year-old female with a history of colon cancer status post right hemicolectomy in 2012 he has also had a laparoscopic cholecystectomy as well as a ventral hernia repair. She presents with a small bowel obstruction, felt to be due to adhesions. A she is improved. She has not required an NG tube. Her abdomen is soft. She has had a bowel movement today. General surgery is following and we will await their recommendations. Exam Gen - NAD< AAOx3 Skin warm and dry Lung CTAB Ht RRR Abd- soft + BS, NT Ext-no sig edema <Emerson Rob - Last Filed: 09/14/17 15:36> Date of Encounter: 09/14/17 Time of Encounter: 08:36 - Assessment and plan (1) SBO (small bowel obstruction) Current Visit: Yes Status: Acute Assessment and plan: Surgery team following, appreciate recommendations, Continue antiemetics for nausea and vomiting Continue to monitor closely Patient reports BM x2 this AM and is tolerating clear liquid diet. Patient is eager to advance diet once cleared by surgery. Plan to d/c once cleared from a surgical standpoint (2) Colon cancer Current Visit: Yes Status: Chronic Assessment and plan: History of colon cancer, status post right hemicolectomy in 2013 and laparoscopic cholecystectomy and ventral hernia repair Follows with oncology as an outpatient Qualifiers: Colon location: unspecified part of colon Qualified Code(s): C18.9 - Malignant neoplasm of colon, unspecified (3) CAD (coronary artery disease) Current Visit: Yes Status: Chronic Assessment and plan: Resume home medications. Qualifiers: Coronary Disease-Associated Artery/Lesion type: [place] artery [place] vs. transplanted heart: [place] heart Associated angina: without angina Qualified Code(s): I25.10 - Atherosclerotic heart disease of [place] coronary artery without angina pectoris (4) HTN (hypertension) Current Visit: Yes Status: Chronic Assessment and plan: Blood pressure controlled, resume home medications Qualifiers: Hypertension type: essential hypertension Qualified Code(s): I10 - Essential (primary) hypertension (5) Diabetes mellitus Current Visit: Yes Status: Chronic Assessment and plan: Every 6 hours Accu-Checks Low sliding scale corrective coverage Qualifiers: Diabetes mellitus type: type 2 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 Patient reports BM x2 this AM and is tolerating clear liquid diet. Patient is eager to advance diet once cleared by surgery. No new c/o. - Constitutional Vitals: Temp Pulse Resp BP Pulse Ox 97.5 F L 59 16 143/87 94 09/14/17 06:43 09/14/17 06:43 09/14/17 06:43 09/14/17 06:43 09/14/17 06:43 General appearance: Present: cooperative, A&O X 3, morbidly obese, pleasant, no acute distress, answers questions appropriately - Head Head exam: Present: atraumatic, normocephalic - Eye Eye exam: Present: PERRL, conjuntiva pink, sclera anicteric Pupils: Present: PERRL - ENT ENT exam: Present: mucous membranes moist, normal oropharynx - Neck Neck exam general surgery: Present: supple, trachea midline. Absent: lymphadenopathy - Respiratory Respiratory exam: Present: CTAB. Absent: accessory muscle use, rales, rhonchi, wheezes - Cardiovascular Cardiovascular exam: Present: RRR, +S1, +S2. Absent: diastolic murmur, gallop, rubs, systolic murmur - GI/Abdominal GI/Abdominal exam: Present: normal bowel sounds, soft, tenderness (RUQ and LLQ) , no peritoneal signs. Absent: distended, guarding Additional comments: obese - Extremities Exam Extremities exam: Present: warm, radial pulses palpable and symmetrical. Absent : calf tenderness, cyanotic, pedal edema - Back Exam Back exam: Present: normal inspection. Absent: tenderness - Neurological Exam Neurological exam: Present: CN II-XII intact, oriented X3, no focal deficits. Absent: pronater drift, facial droop, speech deficit - Psychiatric Psychiatric exam: Present: normal affect, normal mood - Skin Skin exam: Present: dry, intact, warm Internal Medicine: Result - Labs CBC & Chem 7: 09/14/17 03:12 09/14/17 03:12 Labs: Short CBC 09/14/17 Range/Units 03:12 WBC 5.7 (4.3-11.1) K/mcL Hgb 12.0 (11.5-15.4) g/dL Hct 37.7 (35.3-44.9) % Plt Count 163 (140-400) K/mcL Neutrophils # 3.1 (1.6-8.9) K/mcL BMP 09/14/17 03:12 Sodium 140 Potassium 3.8 Chloride 112 H Carbon Dioxide 24 BUN 16 Creatinine 0.91 Glucose 104 Calcium 8.5 L - Pulse Oximetry Interpretation Digit-Finger Pulse Oximetry Readin (On RA)
--- NOTE | 2017-09-14 09:48 | General Surgery Progress Note ---
<JakubkaileyKenneth - Last Filed: 09/14/17 19:01> Date of Encounter: 09/14/17 Time of Encounter: 09:30 - Assessment and Plan (1) SBO (small bowel obstruction) Current Visit: Yes Status: Acute Pt with SBO on CT abd exam shows no peritoneal signs or evidence of accute abdomen. No bowel sounds in lower quadrants, no bowel movements or passing gas. Plan: Start Clear liquid diet advance as tolerated Continue Zofran PRN for Nausea Patient no longer obstructed. Surgery will sign off. (2) Colon cancer Current Visit: Yes Status: Chronic Pt is s/p R colectomy Pt follows with surgery as an out patient. Patient had recent colonoscopy 09/03 one polyp removed and inflammation in transverse colon biopsied, path pending. Qualifiers: Colon location: unspecified part of colon Qualified Code(s): C18.9 - Malignant neoplasm of colon, unspecified (3) CAD (coronary artery disease) Current Visit: Yes Status: Chronic Management per primary team Qualifiers: Coronary Disease-Associated Artery/Lesion type: [place] artery [place] vs. transplanted heart: [place] heart Associated angina: without angina Qualified Code(s): I25.10 - Atherosclerotic heart disease of [place] coronary artery without angina pectoris (4) HTN (hypertension) Current Visit: Yes Status: Chronic Management per primary team. Qualifiers: Hypertension type: essential hypertension Qualified Code(s): I10 - Essential (primary) hypertension (5) Diabetes mellitus Current Visit: Yes Status: Chronic Management per primary team. 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 Patient is feeling better. Objective Vital Signs - Last 8 Hours Temp Pulse Resp BP Pulse Ox 09/14/17 06:43 97.5 F L 59 16 143/87 94 Intake and Output 09/13/17 09/14/17 09/14/17 23:59 07:59 15:59 Intake Total 100 / 1100 Output Total 100 / 100 Balance 0 / 1000 Intake: IV Fluids 100 / 100 Ofirmev 1,000 mg/100 ml 1,000 100 / 100 mg In 100 ml @ 400 mls/hr IVPB Q6HR PRN Rx#:[id number] Oral 0 / 0 Output: Urine 100 / 100 Other: Stool Size Small Stool Consistency loose liquid Stool Characteristics Normal for Patient Stool Color Brown # Voids 1 # Bowel Movements 1 Blood Glucose* 100 94 - General physical appearance well developed, well nourished, no distress - Eyes normal ocular movement - ENT normal mucosa - Neck Neck exam: trachea midline - Respiratory normal expansion, normal respiratory effort, clear to auscultation - Cardiovascular Cardiovascular exam: Present: RRR, no murmurs/rubs/gallops - Abdomen Abdomen: Present: bowel sounds present, soft, non tender - Integumentary no abnormal pigmentation - Neurologic CN 2-12 grossly intact, normal coordination, normal sensation - Musculoskeletal normal posture - Psychiatric oriented to time, oriented to person, oriented to place, speech is normal, memory intact - Labs 09/14/17 03:12 09/14/17 03:12 Diabetes panel 09/14/17 Range/Units 03:12 Sodium 140 (136-145) mEq/L Potassium 3.8 (3.5-5.1) mEq/L Chloride 112 H (98-107) mEq/L Carbon Dioxide 24 (23-29) mEq/L BUN 16 (8-23) mg/dL Creatinine 0.91 (0.60-1.20) mg/dL Glucose 104 (70-105) mg/dL Calcium 8.5 L (8.6-10.3) mg/dL Calcium panel 09/14/17 Range/Units 03:12 Calcium 8.5 L (8.6-10.3) mg/dL Pituitary panel 09/14/17 Range/Units 03:12 Sodium 140 (136-145) mEq/L Potassium 3.8 (3.5-5.1) mEq/L Chloride 112 H (98-107) mEq/L Carbon Dioxide 24 (23-29) mEq/L BUN 16 (8-23) mg/dL Creatinine 0.91 (0.60-1.20) mg/dL Glucose 104 (70-105) mg/dL Calcium 8.5 L (8.6-10.3) mg/dL Adrenal panel 09/14/17 Range/Units 03:12 Sodium 140 (136-145) mEq/L Potassium 3.8 (3.5-5.1) mEq/L Chloride 112 H (98-107) mEq/L Carbon Dioxide 24 (23-29) mEq/L BUN 16 (8-23) mg/dL Creatinine 0.91 (0.60-1.20) mg/dL Glucose 104 (70-105) mg/dL Calcium 8.5 L (8.6-10.3) mg/dL Consult Discharge Plan - Plan Referrals: Marshal Morrell MD [Primary Care Provider] - <Rajesh Wilde - Last Filed: 09/14/17 22:52> Date of Encounter: 09/14/17 Objective Vital Signs - Last 8 Hours Temp Pulse Resp BP Pulse Ox 09/14/17 18:19 97.7 F 72 16 125/79 97 09/14/17 16:43 97.9 F 72 20 152/84 95 Intake and Output 09/14/17 09/14/17 09/14/17 07:59 15:59 23:59 Intake Total 100 / 100 120 / 120 Balance 100 / 100 120 / 120 Intake: IV Fluids 100 / 100 Ofirmev 1,000 mg/100 ml 1,000 100 / 100 mg In 100 ml @ 400 mls/hr IVPB Q6HR PRN Rx#:[id number] Oral 120 / 120 Other: Meal Dinner Percent of Meal Consumed 80% Stool Consistency loose Stool Color Green # Voids 1 Weight 106.5 kg Blood Glucose* 94 180 104 Patient Weight 09/14/17 23:59 Weight 106.5 kg - Labs 09/14/17 03:12 09/14/17 03:12 Diabetes panel 09/14/17 Range/Units 03:12 Sodium 140 (136-145) mEq/L Potassium 3.8 (3.5-5.1) mEq/L Chloride 112 H (98-107) mEq/L Carbon Dioxide 24 (23-29) mEq/L BUN 16 (8-23) mg/dL Creatinine 0.91 (0.60-1.20) mg/dL Glucose 104 (70-105) mg/dL Calcium 8.5 L (8.6-10.3) mg/dL Calcium panel 09/14/17 Range/Units 03:12 Calcium 8.5 L (8.6-10.3) mg/dL Pituitary panel 09/14/17 Range/Units 03:12 Sodium 140 (136-145) mEq/L Potassium 3.8 (3.5-5.1) mEq/L Chloride 112 H (98-107) mEq/L Carbon Dioxide 24 (23-29) mEq/L BUN 16 (8-23) mg/dL Creatinine 0.91 (0.60-1.20) mg/dL Glucose 104 (70-105) mg/dL Calcium 8.5 L (8.6-10.3) mg/dL Adrenal panel 09/14/17 Range/Units 03:12 Sodium 140 (136-145) mEq/L Potassium 3.8 (3.5-5.1) mEq/L Chloride 112 H (98-107) mEq/L Carbon Dioxide 24 (23-29) mEq/L BUN 16 (8-23) mg/dL Creatinine 0.91 (0.60-1.20) mg/dL Glucose 104 (70-105) mg/dL Calcium 8.5 L (8.6-10.3) mg/dL - Attending Attestation patient seen and examined; i have reviewed all imaging, labs, and notes, including this one. i agree with the above assessment and plan.
[2017-09-14] MEDS: Acetaminophen IV 1,000 MG/100 ML INFUS..BTL IVPB PRN (11:00)
[2017-09-14] MEDS ORDERED: Lisinopril 20 MG TABLET PO SCH (15:45)
[2017-09-14] MEDS ORDERED: Metoprolol XL (24 HR) Succ 50 MG TAB.ER.24H PO SCH (15:45)
[2017-09-14] MEDS ORDERED: Aspirin 81 MG TAB.CHEW PO SCH (15:45)
[2017-09-14] MEDS ORDERED: amLODIPine 5 MG TABLET PO SCH (15:45)
[2017-09-14] MEDS: *HR* Heparin 5,000 UNIT/ML VIAL SQ SCH (20:31)
[2017-09-14] MEDS ORDERED: Gabapentin 300 MG CAPSULE PO SCH (21:00)
[2017-09-15 02:57] LABS: BUN/Creatinine Ratio 15 (6-26); Blood Urea Nitrogen 12 mg/dL (8-23); Calcium 8.9 mg/dL (8.6-10.3); Carbon Dioxide 27 mEq/L (23-29); Chloride 107 mEq/L (98-107); Glucose 120 mg/dL (70-105); Osmolality,Calculated 291 (280-300); Potassium 3.5 mEq/L (3.5-5.1); Sodium 140 mEq/L (136-145); eGFR For African Americans > 60 (> 60); eGFR For Non-African Americans > 60 (> 60)
[2017-09-15] MEDS: *HR* Heparin 5,000 UNIT/ML VIAL SQ SCH (05:27)
[2017-09-15] MEDS: Insulin LISPRO 300 UNITS/3 ML VIAL SQ SCH (06:32)
[2017-09-15 06:39] VITALS: BP 104/68
--- NOTE | 2017-09-15 07:31 | Discharge Summary ---
<Emerson Rob - Last Filed: 09/15/17 09:56> Date of Encounter: 09/15/17 Time of Encounter: 07:30 - Discharge Diagnosis (1) SBO (small bowel obstruction) Priority: Primary Status: Acute (2) Colon cancer Priority: Secondary Status: Chronic Qualifiers: Colon location: unspecified part of colon Qualified Code(s): C18.9 - Malignant neoplasm of colon, unspecified (3) CAD (coronary artery disease) Priority: Secondary Status: Chronic Qualifiers: Coronary Disease-Associated Artery/Lesion type: [place] artery [place] vs. transplanted heart: [place] heart Associated angina: without angina Qualified Code(s): I25.10 - Atherosclerotic heart disease of [place] coronary artery without angina pectoris (4) HTN (hypertension) Priority: Secondary Status: Chronic Qualifiers: Hypertension type: essential hypertension Qualified Code(s): I10 - Essential (primary) hypertension (5) Diabetes mellitus Priority: Secondary Status: Chronic Qualifiers: Diabetes mellitus type: type 2 Diabetes mellitus alf insulin use: without alf use Diabetes mellitus complication status: without complication Qualified Code(s): E11.9 - Type 2 diabetes mellitus without complications (6) DVT prophylaxis Priority: Secondary Status: Acute Hospital course: Ms. Grant is a 67 year old female with a PMHx of Colon CA s/p R hemicolectomy in 2012 at [facility], HTN, Anemia, CAD, CKD, DM, Lap steven with ventral hernia repair that was admitted for SBO. Of note she had a colonoscopy 09/03/[address] Maurice showing non thrombosed external hemorrhoids, one 3mm polyp, which was removed, and localized mild inflammation in the transverse colon which was biopsied. Pathology results revealed hyperplastic rectal polyp, benign intestinal mucosa with moderate chronic inflammation, minimally active; negative for dysplasia, no evidence of inflammatory bowel disease, infectious colitis, collagenous colitis or lymphocytic colitis. Patient reported no bowel movement or gas since 09/11/17 and 3 episodes of non-bloody, non-bilious vomiting prior to arrival. No blood in vomit or stool. CT scan of abd showed stomach is distended. Small bowel is mildly dilated and fluid-filled. No focal transition point is identified. The patient is status post right hemicolectomy. There are descending and sigmoid colon diverticula with no definite evidence for diverticulitis." Basic lab work including CBC, BMP, LFTs, lipase, troponin, and UA were unremarkable. Vitals were stable. General surgery was consulted. Patent improved during hospital course with symptomatic treatment , bowel rest, and Zofran PRN nausea. She reported tolerating PO intake, passing flatus, and BM by hospital day 2 and was discharged home with outpatient follow up. Discharge discussed with: patient - Time Spent with Patient Total time spent providing and/or coordinating discharge services: - Discharge Medications Home Medications: Allopurinol [Zyloprim] 300 mg PO DAILY 03/14/15 [History] Aspirin 81 mg PO DAILY 03/14/15 [History] Atorvastatin [Lipitor] 40 mg PO DAILY 03/14/15 [History] Lisinopril [Zestril] 20 mg PO DAILY 03/14/15 [History] Metformin [Glucophage] 500 mg PO 0800 03/14/15 [History] Hydrocodone/Acetaminophen [[place] 5-325 Tablet] 1 tab PO TID PRN 10/21/15 [ History] Cholecalciferol (Vitamin D3) [Vitamin D3] 2,000 unit PO DAILY 09/03/17 [History] Gabapentin [Neurontin] 600 mg PO HS 09/03/17 [History] Omeprazole [PriLOSEC] 20 mg PO DAILY 09/03/17 [History] amLODIPine [Norvasc] 5 mg PO DAILY 09/03/17 [History] Metoprolol XL (24 HR) Succ [Toprol Xl] 100 mg PO DAILY 09/13/17 [History] Ondansetron HCl [Zofran] 4 mg PO DAILY 09/13/17 [History] Ondansetron [Zofran] 4 mg IVP Q8HR PRN vial 09/15/17 [Rx] Allergies/Adverse Reactions: 3 Allergy/AdvReac Type Severity Reaction Status Date / Time citalopram [From Celexa] Allergy Rash Verified 09/13/17 09:08 morphine AdvReac Hypotension Verified 09/13/17 09:08 tramadol AdvReac Irritable Verified 09/13/17 09:08 Date of admission: 09/13/17 20:33 Primary care physician: Marshal Morrell MD Consults: General surgery Discharging clinician: Emerson Rob Anticipated date of discharge: 09/15/17 - Constitutional Vitals: Temp Pulse Resp BP Pulse Ox 98.7 F 79 15 104/68 95 09/15/17 06:38 09/15/17 06:38 09/15/17 06:38 09/15/17 06:38 09/15/17 06:38 General appearance: Present: cooperative, A&O X 3, morbidly obese, pleasant, no acute distress, answers questions appropriately - Head Head exam: Present: atraumatic, normocephalic - Eye Eye exam: Present: PERRL, conjuntiva pink, sclera anicteric Pupils: Present: PERRL - ENT ENT exam: Present: mucous membranes moist, normal oropharynx - Neck Neck exam general surgery: Present: supple, trachea midline. Absent: lymphadenopathy - Respiratory Respiratory exam: Present: CTAB. Absent: accessory muscle use, rales, rhonchi, wheezes - Cardiovascular Cardiovascular exam: Present: RRR, +S1, +S2. Absent: diastolic murmur, gallop, rubs, systolic murmur - GI/Abdominal GI/Abdominal exam: Present: normal bowel sounds, soft, no peritoneal signs. Absent: diminished bowel sounds, distended, guarding, tenderness - Extremities Exam Extremities exam: Present: warm, radial pulses palpable and symmetrical. Absent : calf tenderness, cyanotic, pedal edema - Back Exam Back exam: Present: normal inspection. Absent: tenderness - Neurological Exam Neurological exam: Present: CN II-XII intact, oriented X3, no focal deficits. Absent: pronater drift, facial droop, speech deficit - Psychiatric Psychiatric exam: Present: normal affect, normal mood - Skin Skin exam: Present: dry, intact, warm - Patient Status Disposition: Home, Self-Care Condition: Good Functional capacity at discharge: uses cane/walker Overall status at discharge: patient is back to baseline - Discharge Instructions Instructions: Bowel Obstruction (DC) Follow Up With: Rajesh Wilde MD [Non-Partnered Physician] - (Please follow up in one to two weeks.) Marshal Morrell MD [Primary Care Provider] - (Please follow up in one to weeks.) Additional Instructions: Follow-up appointments: If there is not an appointment listed below, please call your physician and schedule a follow-up appointment. If you have congestive heart failure and your symptoms return, make an appointment with your physician. Medication List: Carry an up to date list of medications you are taking at all time. We have given you an updated medication list including any new medications that you have been prescribed. Please provide that list to your primary provider Symptoms: If your condition changes or you experience any of the following symptoms, notify your physician immediately: Unusual or worsening pain, fever, persistent nausea and vomiting, bleeding, increase in swelling (especially in your legs), sudden weight gain, extreme dizziness, chest pain, increased drainage or redness from a wound or incision. Go to the emergency department if you experience a problem with breathing. Weights: If you have a history of swelling or shortness of breath, weigh yourself daily and notify your physician if you have a weight gain of two or more pounds in one day or 5 or more pounds in a week. If you experience any of the warning signs for stroke: Sudden numbness or weakness of the face, arm or leg; especially on one side of the body, sudden confusion, trouble speaking or understanding, sudden trouble seeing in one or both eyes, sudden trouble walking, dizziness, loss of balance or coordination, sudden sever headache with no cause; Call 911 or go to the emergency room. Stroke is a medical emergency. Some risk factors for stroke: Age, cigarette smoking, diabetes, excessive alcohol consumption, family history , high blood pressure, overweight, physical inactivity, prior stroke, heart attack, diagnosis of carotid artery stenosis or other artery disease. If you smoke, STOP: Smoking or tobacco use significantly increases your risk of heart and lung disease. Your chance of disease greatly increases if you continue to smoke. For more information, call the [place] tobacco quit line for smoking cessation 6 QUIT-NOW ( ) - Diet and Activity Activity: ambulate only with your walker Diet: advance to your usual diet <Boo Bush - Last Filed: 09/15/17 13:50> Date of Encounter: 09/15/17 - Discharge Diagnosis (1) Colon cancer Status: Chronic Qualifiers: Colon location: unspecified part of colon Qualified Code(s): C18.9 - Malignant neoplasm of colon, unspecified (2) SBO (small bowel obstruction) Status: Acute (3) CAD (coronary artery disease) Status: Chronic Qualifiers: Coronary Disease-Associated Artery/Lesion type: [place] artery [place] vs. transplanted heart: [place] heart Associated angina: without angina Qualified Code(s): I25.10 - Atherosclerotic heart disease of [place] coronary artery without angina pectoris (4) HTN (hypertension) Status: Chronic Qualifiers: Hypertension type: essential hypertension Qualified Code(s): I10 - Essential (primary) hypertension (5) Diabetes mellitus Status: Chronic Qualifiers: Diabetes mellitus type: type 2 Diabetes mellitus buildings painter insulin use: without buildings painter use Diabetes mellitus complication status: without complication Qualified Code(s): E11.9 - Type 2 diabetes mellitus without complications (6) DVT prophylaxis Status: Acute Hospital course: Ms. Grant is a 67 year old female - Time Spent with Patient Total time spent providing and/or coordinating discharge services: Date of admission: 09/13/17 20:33 Primary care physician: Marshal Morrell MD - Constitutional Vitals: Temp Pulse Resp BP Pulse Ox 98.7 F 79 15 104/68 95 09/15/17 06:38 09/15/17 06:38 09/15/17 06:38 09/15/17 06:38 09/15/17 06:38 - Attending Attestation SBO resolved time spent 40 min I examined this patient and my medical decision-making was reviewed with the Resident Physician. I agree with the documented findings, disposition and treatment plan as described except to the extent set forth below.
[2017-09-15] MEDS ORDERED: Cholecalciferol (D-3) 1,000 UNIT TABLET PO SCH (09:00)
== END 2017-09-15 11:57 | disposition home or self-care (01) | DRG 247 ==
LOC: EMEROO 00:16 → 3NENU 00:16
PROVIDERS: ADMIT Nurse Practitioner; ATTEND Internal Medicine Cardiovascular Disease

== ENCOUNTER 2022-01-19 10:25 | Observation (INO) ==
[2022-01-19 11:18] LABS: Basophils % 0.3 %; Eosinophils % 0.3 %; Hemoglobin 11.7 g/dL (11.5-15.4); Immature Granulocytes % 0.8 % (0-4); Lymphocytes # 0.6 K/mcL (0.6-4.6); Lymphocytes % 15.3 %; Mean Corpuscular HGB Conc 31.6 g/dL (31.6-35.5); Mean Corpuscular Hemoglobin 29.9 pg (28.0-33.3); Mean Corpuscular Volume 94.6 fL (83.0-100.0); Mean Platelet Volume 9.5 fL (9.4-12.4); Monocytes # 0.4 K/mcL (0.0-1.3); Monocytes % 11.6 %; Neutrophils # 2.7 K/mcL (1.6-8.9); Platelet Count 167 K/mcL (140-400); Red Blood Count 3.91 M/mcL (3.82-4.97); Red Cell Distribution Width 16.4 % (11.5-14.5); Segmented Neutrophils % 71.7 %; White Blood Count 3.8 K/mcL (4.3-11.1)
[2022-01-19] MEDS ORDERED: Iopamidol - 370 500 ML MLS IVP ONE (11:31)
[2022-01-19] MEDS ORDERED: 0.9 % Sodium Chloride 500 ML IVC ONE (11:32)
[2022-01-19] MEDS ORDERED: Ondansetron 4 MG/2 ML VIAL IVP ONE (11:32)
[2022-01-19 11:37] LABS: BUN/Creatinine Ratio 13 (6-26); Blood Urea Nitrogen 16 mg/dL (8-23); Calcium 9.2 mg/dL (8.6-10.3); Carbon Dioxide 26 mEq/L (23-29); Chloride 101 mEq/L (98-107); Glucose 195 mg/dL (70-105); Lipase 61 Units/L (11-82); Magnesium 1.7 mg/dL (1.6-2.6); Osmolality,Calculated 291 (280-300); Phosphorous 3.3 mg/dL (2.7-4.5); Sodium 137 mEq/L (136-145); Troponin I < 0.03 ng/mL (< 0.04)
[2022-01-19 12:26] LABS: Influenza A PCR Negative (Negative); Influenza B PCR Negative (Negative); Resp. Syncytial Virus PCR Negative (Negative)
[2022-01-19 12:40] LABS: SARS-CoV-2 by PCR (In House) Positive (Negative)
[2022-01-19 12:53] LABS: Bilirubin,Urine Negative (Negative); Blood,Urine Negative (Negative); Clarity,Urine Clear (Clear); Color,Urine Light-Yellow (Yellow); Glucose,Urine (UA) 50 mg/dL (Normal); Hyaline Casts,Urine Few per lpf (None Seen); Ketones,Urine Negative (Negative); Leukocyte Esterase,Urine Negative (Negative); Mucus,Urine Few per lpf (None-Few); Nitrite,Urine Negative (Negative); PH,Urine 7.5 pH Units (5.0-8.0); Protein,Urine Trace mg/dL (Neg-Trace); RBC,Urine 0-3 per hpf (0-3); Specific Gravity,Urine 1.025 (1.010-1.025); Squamous Epithelial Cell,Urine Moderate per hpf (None-Few); Urobilinogen,Urine Normal (Normal); WBC,Urine 0-3 per hpf (0-3)
[2022-01-19] MEDS ORDERED: Acetaminophen IV 1,000 MG/100 ML BAG IVPB ONE (13:17)
[2022-01-19 13:49] LABS: Albumin 3.8 g/dL (3.5-5.7); Bilirubin,Direct 0.1 mg/dL (0.0-0.2); Bilirubin,Indirect 0.5 mg/dL (0.0-1.0); Bilirubin,Total 0.6 mg/dL (0.3-1.0); Globulin 3.7 g/dL (2.4-3.5); Total Protein 7.5 g/dL (6.4-8.9)
[2022-01-19] MEDS ORDERED: Naloxone 0.4 MG/ML INJ IVP PRN (15:19)
[2022-01-19] MEDS: Ondansetron 4 MG/2 ML VIAL IVP PRN (16:15)
[2022-01-19] MEDS ORDERED: Pantoprazole 40 MG VIAL IVP ONE (17:44)
[2022-01-19] MEDS ORDERED: D5% in Water 1,000 ML IVC PRN (17:47)
[2022-01-19] MEDS ORDERED: *HR* Dextrose 50 % in Water (Syg) 50 ML SYRINGE IVP PRN (17:47)
[2022-01-19] MEDS ORDERED: Dextrose Gel 15 GM/37.5 ML TUBE PO PRN ×2 (17:47)
[2022-01-19] MEDS: Insulin LISPRO 300 UNITS/3 ML VIAL SUBQ SCH ×2 (19:17→21:23)
[2022-01-19] MEDS: *HR* HYDROcodone/Acet 10/325 mg TABLET PO PRN (19:24)
[2022-01-19] MEDS ORDERED: Prochlorperazine 10 MG/2 ML VIAL IVP ONE (20:06)
[2022-01-19] MEDS: Gabapentin 300 MG CAPSULE PO SCH (21:38)
[2022-01-20 02:51] LABS: Basophils % 0.5 %; Calcium 8.7 mg/dL (8.6-10.3); Eosinophils % 0.2 %; Hemoglobin 10.5 g/dL (11.5-15.4); Immature Granulocytes % 0.5 % (0-4); Lymphocytes # 0.9 K/mcL (0.6-4.6); Lymphocytes % 21.1 %; Magnesium 1.9 mg/dL (1.6-2.6); Mean Corpuscular HGB Conc 31.8 g/dL (31.6-35.5); Mean Corpuscular Hemoglobin 29.3 pg (28.0-33.3); Mean Corpuscular Volume 92.2 fL (83.0-100.0); Mean Platelet Volume 9.7 fL (9.4-12.4); Monocytes # 0.4 K/mcL (0.0-1.3); Monocytes % 9.6 %; Platelet Count 190 K/mcL (140-400); Potassium 3.7 mEq/L (3.5-5.1); Red Blood Count 3.58 M/mcL (3.82-4.97); Red Cell Distribution Width 16.1 % (11.5-14.5); Segmented Neutrophils % 68.1 %; White Blood Count 4.4 K/mcL (4.3-11.1)
[2022-01-20 04:15] LABS: Estimated Average Glucose 137 mg/dl; Hemoglobin A1C 6.4 %
[2022-01-20] MEDS ORDERED: 0.9 % Sodium Chloride 1,000 ML IVC SCH (08:00)
[2022-01-20] MEDS: Insulin LISPRO 300 UNITS/3 ML VIAL SUBQ SCH ×4 (08:16→21:50)
[2022-01-20] MEDS: Gabapentin 300 MG CAPSULE PO SCH ×3 (08:34→21:49)
[2022-01-20] MEDS: allopurinoL 300 MG TABLET PO SCH (08:35)
[2022-01-20] MEDS: Aspirin Enteric Coated 81 MG Tablet PO SCH (08:35)
[2022-01-20] MEDS: amLODIPine 5 MG TABLET PO SCH (08:36)
[2022-01-20] MEDS ORDERED: lisinopriL 20 MG TABLET PO SCH (09:00)
[2022-01-20] MEDS ORDERED: Metoprolol XL (24 HR) Succ 50 MG TAB.ER.24H PO SCH (09:00)
[2022-01-20] MEDS: *HR* HYDROcodone/Acet 10/325 mg TABLET PO PRN (17:09)
[2022-01-21] MEDS: Insulin LISPRO 300 UNITS/3 ML VIAL SUBQ SCH ×4 (08:48→22:04)
[2022-01-21] MEDS: amLODIPine 5 MG TABLET PO SCH (08:55)
[2022-01-21] MEDS: allopurinoL 300 MG TABLET PO SCH (08:55)
[2022-01-21] MEDS: Aspirin Enteric Coated 81 MG Tablet PO SCH (08:55)
[2022-01-21] MEDS: Gabapentin 300 MG CAPSULE PO SCH ×3 (08:55→22:04)
[2022-01-21 09:02] LABS: Basophils % 0.5 %; Eosinophils % 1.1 %; Hematocrit 35.3 % (35.3-44.9); Immature Granulocytes % 0.3 % (0-4); Lymphocytes # 1.5 K/mcL (0.6-4.6); Lymphocytes % 40.9 %; Mean Corpuscular HGB Conc 31.2 g/dL (31.6-35.5); Mean Corpuscular Hemoglobin 29.1 pg (28.0-33.3); Mean Corpuscular Volume 93.4 fL (83.0-100.0); Mean Platelet Volume 9.2 fL (9.4-12.4); Monocytes # 0.3 K/mcL (0.0-1.3); Monocytes % 8.4 %; Neutrophils # 1.8 K/mcL (1.6-8.9); Platelet Count 175 K/mcL (140-400); Red Blood Count 3.78 M/mcL (3.82-4.97); Red Cell Distribution Width 16.5 % (11.5-14.5); Segmented Neutrophils % 48.8 %; White Blood Count 3.7 K/mcL (4.3-11.1)
[2022-01-21 09:21] LABS: Calcium 8.2 mg/dL (8.6-10.3); Potassium 3.8 mEq/L (3.5-5.1)
[2022-01-21] MEDS ORDERED: 0.9 % Sodium Chloride 1,000 ML IVC SCH (15:15)
[2022-01-21] MEDS: Acetaminophen 325 MG TABLET PO PRN ×2 (15:21→22:05)
[2022-01-22] MEDS: *HR* HYDROcodone/Acet 10/325 mg TABLET PO PRN (02:13)
[2022-01-22 06:45] VITALS: BP 115/71; PULSE 70; TEMP 97.8; O2SAT 92
[2022-01-22] MEDS: Insulin LISPRO 300 UNITS/3 ML VIAL SUBQ SCH (07:36)
[2022-01-22] MEDS ORDERED: Ergocalciferol (VIT D2) 50,000 UNIT (1.25MG) CAP PO SCH (09:00)
[2022-01-22] MEDS: allopurinoL 300 MG TABLET PO SCH (09:06)
[2022-01-22] MEDS: Ondansetron 4 MG/2 ML VIAL IVP PRN (09:07)
[2022-01-22] MEDS: amLODIPine 5 MG TABLET PO SCH (09:07)
[2022-01-22] MEDS: Aspirin Enteric Coated 81 MG Tablet PO SCH (09:07)
[2022-01-22] MEDS: Gabapentin 300 MG CAPSULE PO SCH (09:07)
[2022-01-22 11:55] LABS: Basophils % 0.4 %; Eosinophils % 1.5 %; Hematocrit 35.5 % (35.3-44.9); Hemoglobin 11.2 g/dL (11.5-15.4); Immature Granulocytes % 0.4 % (0-4); Lymphocytes # 1.2 K/mcL (0.6-4.6); Lymphocytes % 44.4 %; Mean Corpuscular HGB Conc 31.5 g/dL (31.6-35.5); Mean Corpuscular Hemoglobin 29.6 pg (28.0-33.3); Mean Corpuscular Volume 93.9 fL (83.0-100.0); Mean Platelet Volume 9.7 fL (9.4-12.4); Monocytes # 0.2 K/mcL (0.0-1.3); Monocytes % 8.6 %; Neutrophils # 1.2 K/mcL (1.6-8.9); Platelet Count 173 K/mcL (140-400); Red Blood Count 3.78 M/mcL (3.82-4.97); Red Cell Distribution Width 16.4 % (11.5-14.5); Segmented Neutrophils % 44.7 %; White Blood Count 2.7 K/mcL (4.3-11.1)
[2022-01-22 12:13] LABS: Calcium 8.3 mg/dL (8.6-10.3); Potassium 3.8 mEq/L (3.5-5.1)
== END 2022-01-22 11:33 | disposition home or self-care (01) ==
LOC: 3BNU 10:25 → EMEROOARM 10:25 → SUATTDRO 14:11 → 3BNU 15:37
PROVIDERS: ADMIT Pharmacist; ATTEND Internal Medicine